=== PATIENT | female | born 1955 | race Caucasian/White ===

== ENCOUNTER → 2021-05-09 | Outpatient (CLI) | payer MEDICARE, BC ==
--- NOTE | 2021-05-10 08:39 | KCIC ---
STUDY: MRI of the right ankle without contrast INDICATION: Foot drop. Extensor tendon disruption. Tendinitis. History of ankle surgery. COMPARISON: None. TECHNIQUE: Multiplanar MR imaging of the right ankle performed without the use of intravenous contras t. FINDINGS: Bones: Two medial malleolar screws. The hardware is not fully assessed by MRI but there are no ancill raul findings that would indicate loosening. No acute or subacute fracture. Arthrosis at the ankle is mild and there is no large full-thickness chondral defect. Mild localized chondrosis at the anterolat eral margin of the tibial plafond. Os tibiale externum. Musculotendinous: Intact peroneus brevis and longus. The PTT, FDL and FHL are intact. FHL muscular ed tarsha and mild fatty infiltration, image 9 series 5 and 6. The Achilles is intact and without advanced tendinosis. Intact anterior tibial tendon, extensor hallucis longus and extensor digitorum longus. Th in ganglion cyst emanating from the lateral opening of the sinus tarsi extends to the extensor digito rum longus but felt unlikely of clinical significance, image 20 series 5. No appreciable edema of the visualized extensor muscle bellies. Within normal limits intrinsic foot musculature. Ligaments: The distal syndesmosis is intact. Probable sequela of remote sprain of the ATFL and CFL. T he PTFL is unremarkable. Sequela of remote deltoid ligament sprain but the deep deltoid ligament stil l able to be delineated. Intact spring and Lisfranc ligaments. Sinus tarsi: Maintained fatty signal. Tarsal tunnel: Within normal limits. Plantar fascia: Within normal limits. Miscellaneous: No large joint effusion. Unremarkable superficial soft tissues. IMPRESSION: 1. In the setting of reported foot drop the extensor tendons are intact and without significant tendi nosis. 2. Isolated edema and mild fatty infiltration of the flexor hallucis longus muscle is likely denervat ion related. The etiology and significance of this finding is uncertain as this muscle/tendon is not implicated in foot drop. No abnormality identified along the visualized portion of the tibial nerve. 3. Sequela of previous fracture fixation at the medial malleolus. No complication is apparent by MRI. No acute or subacute osseous abnormality. Minimal arthrosis at the ankle. 4. No acute or full-thickness chronic ligamentous disruption. Electronically signed by: MAGDY SANCHEZ MD (05/10/2021 8:36 AM) [id number]
== END ==
LOC: KCIC MRI 15:07
PROVIDERS: ATTEND Podiatrist
DX: S82.51XS Displaced fracture of medial malleolus of right tibia, sequela (principal); R26.89 Other abnormalities of gait and mobility; M67.89 Other specified disorders of synovium and tendon, multiple sites; X58.XXXS Exposure to other specified factors, sequela
CPT/HCPCS: 73721

== ENCOUNTER 2021-06-12 06:02 | Day surgery (SDC) | payer MEDICARE, BC ==
[~2021-06-12] VITALS: Ht 157.5 cm; Wt 57.2 kg
[~2021-06-12 06:02] MED LIST: HYDROmorphone 2 MG/ML INJ. IVP PRN; IV RINGERS,LACTATED 1000ML 1,000 ML IV SCH; MORPHINE SULFATE 2 MG/ML INJ. IVP PRN; PROCHLORPERAZINE 10 MG/2 ML VIAL. IVP PRN; ceFAZolin SODIUM IV Push 1 GM VIAL. IVP PRN; fentaNYL PF VIAL 100 MCG/2 ML VIAL IVP PRN
[2021-06-12 06:28] VITALS: BP 147/72
[2021-06-12] MEDS ORDERED: CITA20TA6 PO (06:32)
[2021-06-12] MEDS ORDERED: LIDOCAINE 1% PF 5 ML VIAL. ONE (06:56)
[2021-06-12] MEDS ORDERED: PROPOFOL 10 MG/ML (20ML) VIAL. IV ONE (06:56)
[2021-06-12] MEDS ORDERED: fentaNYL PF VIAL 100 MCG/2 ML VIAL ONE (06:57)
[2021-06-12] MEDS ORDERED: BUPIVACAINE MPF 0.25% 30 ML VIAL. ONE (07:16)
--- NOTE | 2021-06-12 07:27 | PDOC1 ---
History and Physical Date of Admission Date of Admission DATE: 06/12/21 TIME: 07:15 Identification/Chief Complaint Chief Complaint Right great toe pain, foot drop Source Source: Patient History of Present Illness History of Present Illness Ms Hill is a 66 yo female with PMHx depression who comes to outpatient surgery today for pre-operative evaluation for right extensor hallux longus tendon repair with possible allograft. She had problems with her right foot since 2014 when she notes she started having a dropfoot. No prior hip, knee or back surgeries. 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 She notes some anesthesia problems at that time but does not recall that event. No other problems with anesthesia no history of blood clots. No recent sick contacts. Only medication is Celexa for depressive disorder. She specifically notes inability to lift her right great toe and some medial numbness on the right great toe. Noted difficulty moving digits she does have overall difficulty lifting her right foot into dorsiflexion and does have an AFO brace for this. She does not enjoy wearing a brace. She is accompanied by her daughter and has brought crutches for postoperative care. She had outpatient MRI which did show some right extensor hallux longus swelling possibly related to denervation injury. She has been previously evaluated for this and thinks she had normal outpatient EMG and was recommended to wear above AFO brace. She rarely drinks and quit smoking several decades ago. No cardiac history normal mammogram history. Has never had a colonoscopy. Past Medical History Cardiovascular: No pertinent hx Psych: Depression Past Surgical History Past Surgical History: Appendectomy, Cataract Removal, Hysterectomy, Other (Right medial ankle fracture repair - 2 screws) Family History Family History: Cancer (Prostate - father) Social History Smoke: Quit (1979) ALCOHOL: rare Drugs: None Current Medications Current Medications Current Medications Fentanyl Citrate (Fentanyl 2ml Vial) 25 mcg PRN Q5MIN PRN IVP MILD PAIN 1-3; Start 06/12/21 at 06:00; Stop 06/13/21 at 05:59 Fentanyl Citrate (Fentanyl 2ml Vial) 50 mcg PRN Q5MIN PRN IVP MODERATE PAIN 4- 6; Start 06/12/21 at 06:00; Stop 06/13/21 at 05:59 Morphine Sulfate (Morphine Sulfate) 1 mg PRN Q10MIN PRN IVP SEVERE PAIN 7-10; Start 06/12/21 at 06:00; Stop 06/13/21 at 05:59 Ringer's Solution 1,000 ml @ 30 mls/hr Q24H IV Last administered on 06/12/21at 06:36; Start 06/12/21 at 06:00; Stop 06/12/21 at 17:59 Hydromorphone HCl (Dilaudid) 0.5 mg PRN Q10MIN PRN IVP SEVERE PAIN 7-10, 2nd CHOICE; Start 06/12/21 at 06:00; Stop 06/13/21 at 05:59 Prochlorperazine Edisylate (Compazine) 5 mg PACU PRN PRN IVP NAUSEA, MRX1; Start 06/12/21 at 06:00; Stop 06/13/21 at 05:59 Cefazolin Sodium (Ancef) 1 gm 1X PREOP PRN IVP PRIOR TO PROCEDURE; Start 06/12/21 at 06:00 Propofol (Diprivan) 200 mg STK-MED ONCE IV ; Start 06/12/21 at 06:56; Stop 06/12/21 at 06:56; Status DC Lidocaine HCl (Xylocaine-Mpf 1% 5ml Vial) 5 ml STK-MED ONCE .ROUTE ; Start 06/12/21 at 06:56; Stop 06/12/21 at 06:56; Status DC Fentanyl Citrate (Fentanyl 2ml Vial) 100 mcg STK-MED ONCE .ROUTE ; Start 06/12/21 at 06:57; Stop 06/12/21 at 06:57; Status DC Active Scripts Active Reported Citalopram Hbr (Citalopram Hydrobromide) 20 Mg Tablet 1 Tab PO DAILY Allergies Allergies: Coded Allergies: No Known Drug Allergies (Unverified , 06/12/21) ROS General: No: Chills, Night Sweats, Fatigue, Malaise, Appetite, Other PSYCHOLOGICAL ROS: No: Anxiety, Behavioral Disorder, Concentration difficultie, Decreased libido, Depression, Disorientation, Hallucinations, Hostility, Ir ritablity, Memory difficulties, Mood Swings, Obsessive thoughts, Physical abuse, Sexual abuse, Sleep disturbances, Suicidal ideation, Other Eyes: No Blurry vision, No Decreased vision, No Double vision, No Dry eyes, No Excessive tearing, No Eye Pain, No Itchy Eyes, No Loss of vision, No Photophobia, No Scotomata, No Uses contacts, No Uses glasses, No Other HEENT: No: Heacaches, Visual Changes, Hearing change, Nasal congestion, Nasal discharge, Oral lesions, Sinus pain, Sore Throat, Epistaxis, Sneezing, Snoring, Tinnitus, Vertigo, Vocal changes, Other ALLERGY AND IMMUNOLOGY: No: Hives, Insect Bite Sensitivity, Itchy/Watery Eyes, Nasal Congestion, Post Nasal Drip, Seasonal Allergies, Other Hematological and Lymphatic: No: Bleeding Problems, Blood Clots, Blood Transfusions, Brusing, Night Sweats, Pallor, Swollen Lymph Nodes, Other ENDOCRINE: No: Breast Changes, Galactorrhea, Hair Pattern Changes, Hot Flashes, Malaise/lethargy, Mood Swings, Palpitations, Polydipsia/polyuria, Skin Changes, Temperature Intolerance, Unexpected Weight Changes, Other Breast: No New/Changing Breast Lumps, No Nipple changes, No Nipple discharge, No Other Respiratory: No: Cough, Hemoptysis, Orthopnea, Pleuritic Pain, Shortness of breath, SOB with excertion, Sputum Changes, Stridor, Tachypnea, Wheezing, Other Cardiovascular: No Chest Pain, No Palpitations, No Orthopnea, No Paroxysmal Noc. Dyspnea, No Edema, No Lt Headedness, No Other Gastrointestinal: No Nausea, No Vomiting, No Abdominal Pain, No Diarrhea, No Constipation, No Melena, No Hematochezia, No Other Genitourinary: No Dysuria, No Frequency, No Incontinence, No Hematuria, No Retention, No Discharge, No Urgency, No Pain, No Flank Pain, No Other, No , No , No , No , No , No , No Musculoskeletal: Yes Joint Stiffness, Yes Muscular Weakness; No Gait Disturbance, No Joint Pain, No Joint Swelling, No Muscle Pain, No Pain In:, No Swelling In:, No Other Neurological: No Behavorial Changes, No Bowel/Bladder ControlChng, No Confusion, No Dizziness, No Gait Disturbance, No Headaches, No Impaired Coord/balance, No Memory Loss, No Numbness/Tingling, No Seizures, No Speech Problems, No Tremors, No Visual Changes, No Weakness, No Other Skin: No Dry Skin, No Eczema, No Hair Changes, No Lumps, No Mole Changes, No Mottling, No Nail Changes, No Pruritus, No Rash, No Skin Lesion Changes, No Other, No Acne Physical Exam General: Alert, Oriented X3, Cooperative, No acute distress HEENT: Atraumatic, PERRLA, EOMI, Mucous membr. moist/pink, Other (Right upper maxilla denture bridge, fixed) Lungs: Clear to auscultation, Normal air movement Heart: S1S2, RRR, no thrills, no rubs, no gallops, no murmurs Abdomen: Normal bowel sounds, Soft, No tenderness, No hepatosplenomegaly, No masses Rectal Exam: not examined Extremities: No clubbing, No cyanosis, No edema, Normal pulses, No tend erness/swelling Skin: No rashes, No breakdown, No significant lesion Neuro: Normal gait, Normal speech, Strength at 5/5 X4 ext, Normal tone, Sensation intact, Cranial nerves 3-12 NL, Reflexes 2+, Other (decreased sensation right great toe, unable to dorsiflex toe) Psych/Mental Status: Mental status NL, Mood NL Vitals Vitals Vital Signs Date Time Temp Pulse Resp B/P (MAP) Pulse Ox O2 Delivery O2 Flow Rate FiO2 06/12/21 06:28 98.7 88 20 98 98.7 06/12/21 06:25 147/72 Room Air Images Images Bones: Two medial malleolar screws. The hardware is not fully assessed by MRI but there are no ancillary findings that would indicate loosening. No acute or subacute fracture. Arthrosis at the ankle is mild and there is no large full- thickness chondral defect. Mild localized chondrosis at the anterolateral margin of the tibial plafond. Os tibiale externum. Musculotendinous: Intact peroneus brevis and longus. The PTT, FDL and FHL are intact. FHL muscular edema and mild fatty infiltration, image 9 series 5 and 6. The Achilles is intact and without advanced tendinosis. Intact anterior tibial tendon, extensor hallucis longus and extensor digitorum longus. Thin ganglion cyst emanating from the lateral opening of the sinus tarsi extends to the extensor digitorum longus but felt unlikely of clinical significance, image 20 series 5. No appreciable edema of the visualized extensor muscle bellies. Within normal limits intrinsic foot musculature. Ligaments: The distal syndesmosis is intact. Probable sequela of remote sprain of the ATFL and CFL. The PTFL is unremarkable. Sequela of remote deltoid ligament sprain but the deep deltoid ligament still able to be delineated. Intact spring and Lisfranc ligaments. Sinus tarsi: Maintained fatty signal. Tarsal tunnel: Within normal limits. Plantar fascia: Within normal limits. Miscellaneous: No large joint effusion. Unremarkable superficial soft tissues. IMPRESSION: 1. In the setting of reported foot drop the extensor tendons are intact and without significant tendinosis. 2. Isolated edema and mild fatty infiltration of the flexor hallucis longus muscle is likely denervation related. The etiology and significance of this finding is uncertain as this muscle/tendon is not implicated in foot drop. No abnormality identified along the visualized portion of the tibial nerve. 3. Sequela of previous fracture fixation at the medial malleolus. No complication is apparent by MRI. No acute or subacute osseous abnormality. Minimal arthrosis at the ankle. 4. No acute or full-thickness chronic ligamentous disruption. VTE Prophylaxis Ordered VTE Prophylaxis Devices: Yes VTE Pharmacological Prophylaxi: No Assessment/Plan Assessment/Plan A/P: Right great toe drop - MRI with possible denervation injury. No further testing prior to planned flexor hallux longus repair Foot drop - unable to completely dorsiflex. She has outpatient PMR and neurology consultation in [place] Depression - cont celexa FEN - NPO PPX - SCDs FULL CODE Dispo -no further testing prior to planned outpatient surgery. Low cardiac risk for low risk surgery. Justifications for Admission Other Justification WENDIE JOHNSON MD Jun 12, 2021 07:27
[2021-06-12] MEDS ORDERED: DEXAMETHASONE SOD PHOS 4 MG/ML VIAL ONE (08:16)
[2021-06-12] MEDS ORDERED: ONDANSETRON PF 4 MG/2 ML VIAL. ONE (08:16)
[2021-06-12] MEDS ORDERED: oxyCODONE/APAP 5/325 1 TAB TABLET PO ONE (09:15)
[2021-06-12] MEDS ORDERED: ACETAMINOPHEN 325 MG TABLET. PO ONE (09:15)
--- NOTE | 2021-06-12 09:15 | PDOC4 ---
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 However it was found slightly lax and dystrophic due to disuse. The tibialis anterior tendon was preserved without significant degeneration either. The EDL was preserved and healthy. At the distal tibia approximately 4.5 cm proximal from the ankle joint, the medial malleolus screw tip was tenting the tibial cortex with a palpable prominence but only minimal. The deep peroneal nerve and neurovascular bundle were freed and mobilized from the surrounding soft tissue. There was no hypertrophy or degenerative changes clinically at the peroneal nerve. The decision was made to leave the minimally prominent cortex tenting intact as further debridement may cause more prominent osseous consolidation/callus. The screw tip shaving may also cause further neurovascular impingement/irritation. Complications: None Operative Note: Indication: Patient presented to clinic with chronic and nonprogressive right drop hallux since 2016 without any inciting events. The flaccid and plantarflex the hallux have been causing gait imbalance and tripping incidences. Patient had right ankle open reduction internal fixation after a tripping incidents in 2016 as well. Otherwise, patient denies any radiculopathy, and minimal weakness with ankle dorsiflexion. Patient has been using AFO inconsistently, had a physical therapy in the past without significant symptom relief. Otherwise, patient denies any history of polio, Rito ataxia, CMT. On the physical exam, the hallux rests plantarflexed approximately 20 degrees relative to the neighboring digits. Isolated EHL muscle strength was 2/5, tibi madelaine anterior muscle strength 4/5 and EDL muscle strength 4-5/5, preserved intrinsic foot muscle strength 5 out of 5. There is diminished light touch sensation over the anterior ankle to the dorsal midfoot following the deep peroneal nerve course. Otherwise negative Tinel sign to the common peroneal nerve. Passive hallux MTPJ and IPJ range of motion was smooth without crepitus or pain. Patient had a prior foot ankle x-ray from an outside facility. MRI of the right ankle remarked relatively preserved EHL without any underlying soft tissue mass, tenosynovitis or any osseous changes to the dorsal foot. However one of the medial malleolar screw tip was suspected to be prominent at the anterior distal tibia along the course of deep peroneal nerve. My original recommendation was to fuse the first MTPJ for reliable nonsustainable and functional foot as both tibialis anterior and EDL are showing some signs of muscle weakness without any systemic neurological deficit. I also consider at the recommended peroneal brevis tendon transfer to augment tibialis anterior tendon and dorsiflexion of ankle for dropfoot. However, patient wanted to keep the surgery intervention minimal and wanted to preserve the joint mobility. But she understood that the tendon transfer/tenodesis alone may not be adequate for the correction of deformity. In that regard, patient agreed with the preoperative plan was to tenodesed the EHL to extensor digitorum longus as opposed to tibialis anterior given the baseline muscle strength. Also, the plan was to explore the distal anterior tibia near the medial malleolar screw exit site and decompressed the peroneal nerve. Under mild sedation, patient was brought into the operating room and placed on operating table in a supine position. A formal timeout was carried out to confirm patient's identity, procedure and procedure site. Following preoperative IV antibiotics and general anesthesia, a well-padded right thigh tourniquet was applied. The right lower extremity was then scrubbed, draped and prepped using aseptic techniques. The right lower extremity was exsanguinated with pressure set at 250mmHg. The attention was directed into the EHL tendon at the anterior ankle joint approximately 4.5 cm proximal from the ankle joint to explore the prominent screw tip. A full-thickness skin incision was made over the EHL tendon. The incision was carried deep with a combination of sharp and blunt dissection with care to protect and retract all the neurovascular bundles. The peroneal nerve/neurovascular bundle were visualized just lateral to the EHL and carefully mobilized and retracted laterally. After the retinaculum was incised, EHL tendon was found preserved without any rupture, significant degeneration. However it was found lax likely due to disuse. Mobilizing EHL both distally and proximally remarked dorsal extension of the hallux and adequate gliding at the proximal muscle tendon junction. The tibialis anterior tendon was found also preserved without hypertrophy or degeneration. The EDL was found healthy and intact. Then the EHL was carefully mobilized medially to investigate the anterior surface of the distal tibia near the medial malleolar screw tip. The deep peroneal nerve and neurovascular bundle proximally were identified and carefully freed from the surrounding soft tissues and blunt dissection. Finger palpation to the anterior surface of the tibia remarked mild osseous prominence with underlying screw tip without any exposed hardware or any significant osseous changes. The decision was made to leave the osseous prominence intact as further debridement may cause worsening osseous callus, metal shaving and hemato ma which may further scarred down or compromise the neurovascular bundle and subsequent neuralgia. Under appropriate tension with ankle held in near 90 degrees in slight dorsiflexion of the hallux MTPJ, the EDL was tenodesed to the extensor tendon with a combination of 2-0 FiberWire, 3-0 Vicryl. Afterwards, the hallux was noted resting at neutral is slightly 5 degrees dorsiflexed across the MTPJ. Passive manipulation of the EDL and EHL tendon remarked dynamic dorsal extension at the MTPJ of hallux as well. To further assist tenodesis and promote tendon gliding and function, and a dehydrated amnion graft [Arthrex] was applied to the EDL and EHL tendon in a burrito fashion and secured to the tendons with 3-0 Vicryl. Then the retinaculum was repaired with 3-0 Vicryl under physiological tension. The skin was repaired in layers with 4-0 Monocryl and 4-0 nylon. Postoperative anesthesia consisted of 10 cc of 0.25% Marcaine plain infiltrated to the surgical site. All surgical sites were dressed with jumpstart dressing [Arthrex], 4 x 4. The right lower extremity was immobilized in a well-padded Montano compression splint with the hallux padded is slightly dorsally extended at 5 degrees across the MTPJ. Tourniquet was deflated and adequate digital perfusion was noted across all 5 digits. Patient tolerated the procedure and anesthesia well with vital signs stable and neurovascular status intact. Patient was then transferred to PACU for continuous recovery. No x-ray was indicated given there was no osseous inte rvention. MY LAMEBRT DPM Jun 12, 2021 09:15
[2021-06-12] MEDS ORDERED: GABAPENTIN 100 MG CAPSULE. PO ONE (09:30)
[2021-06-12] MEDS ORDERED: HYDR-2761 PO (09:52)
[2021-06-12] MEDS ORDERED: GABA-585 PO (09:53)
[2021-06-12] MEDS ORDERED: ACET500T68 PO (09:53)
[2021-06-12] MEDS ORDERED: ASPI-630 PO (09:54)
[2021-06-12] MEDS ORDERED: IBUP-1007 PO (09:54)
[2021-06-12 09:55] VITALS: BP 125/62
== END 2021-06-12 10:45 | disposition home or self-care (01) ==
LOC: SURG 06:02
PROVIDERS: ATTEND Podiatrist
DX: M79.674 Pain in right toe(s) (principal); F41.9 Anxiety disorder, unspecified; M77.9 Enthesopathy, unspecified; Z90.710 Acquired absence of both cervix and uterus; Z98.51 Tubal ligation status; Z98.890 Other specified postprocedural states; Z79.899 Other long term (current) drug therapy; Z79.82 Long term (current) use of aspirin; Z87.891 Personal history of nicotine dependence
CPT/HCPCS: 28208; A4209; A4930; A6223; A6253; A6402; A6449; A6450; J0690; J1100; J2405; J2704; J3010; J3490; V2790; A6455